=== PATIENT | female | born 1945 | race Hispanic/Latino ===

== ENCOUNTER 2017-02-27 13:54 | Emergency (ER) | payer MEDICARE ==
[2017-02-27 14:35] VITALS: BP 83/41
[2017-02-27 15:49] LABS: Hematocrit 34.7 % (30.3-42.9); Hemoglobin 11.5 gm/dl (10.1-14.3); Mean Corpuscular HGB Conc 33 % (30-34); Mean Corpuscular Hemoglobin 33 pg (28-32); Mean Corpuscular Volume 99 fl (79-97); Platelet Count 195 K/mm3 (140-440); Red Blood Count 3.49 M/mm3 (3.65-5.03); Red Cell Distribution Width 14.1 % (13.2-15.2); White Blood Count 6.3 K/mm3 (4.5-11.0)
[2017-02-27 16:10] LABS: Calcium 8.4 mg/dL (8.4-10.2); Chloride 100.1 mmol/L (98-107); Potassium 4.2 mmol/L (3.6-5.0)
--- NOTE | 2017-02-27 16:39 | XRay Report ---
CHEST ONE VIEW INDICATION: Hypotension. COMPARISON: None similar at this institution. FINDINGS: Portable, single, frontal chest radiograph demonstrates mild patient tilt to the right with normal cardiomediastinal silhouette. Clear lungs. Biapical scarring/pleural thickening. Intact bones. Extrinsic EKG leads. CONCLUSION: No acute disease in the chest. Thank you for the opportunity to participate in this patient's care.
[2017-02-27 16:58] LABS: Albumin 3.6 g/dL (3.9-5); Albumin/Globulin Ratio 1.6 %; Alkaline Phosphatase 83 units/L (35-129); Bilirubin,Total 0.2 mg/dL (0.1-1.2); Total Protein 5.9 g/dL (6.3-8.2)
[2017-02-27 17:01] LABS: Alanine Aminotransferase < 5 units/L (7-56); Bilirubin,Direct < 0.2 mg/dL (0-0.2)
[2017-02-27 17:13] LABS: Bilirubin,Urine NEG (Negative); Blood,Urine NEG (Negative); Ketones,Urine NEG (Negative); Leukocyte Esterase,Urine TR (Negative); Mucus,Urine FEW /HPF; Nitrite,Urine NEG (Negative); Protein,Urine <15 mg/dL mg/dL (Negative); Urobilinogen,Urine < 2.0 mg/dL (<2.0)
--- NOTE | 2017-02-27 18:04 | Emergency Department Report ---
ED General Adult HPI - General Chief complaint: Dizziness Stated complaint: LOW BP Time Seen by Provider: 02/27/17 16:00 Source: patient, EMS Mode of arrival: Stretcher Limitations: No Limitations - History of Present Illness Initial comments: The patient was sent to this facility for evaluation of hypotension. She is a resident in a detox program currently on perphenazine, Remeron, trazodone, haloperidol, Paxil, Depakote, Sinemet, gabapentin, Synthroid and Suboxone. She has a history of "stage III renal failure". She does not have any specific complaints on arrival other than generalized weakness. She denies headache chest pain abdominal pain or any swelling of her swelling of her lower extremities. She denies shortness of breath. Her lower blood pressure was noted today. She and I presume her tell me that she was on multiple sedatives and pain medications since her back surgery several years ago. -: Gradual Consistency: constant, now resolved (improved after IV fluid) Improves with: none Worsens with: none Associated Symptoms: denies other symptoms, weakness Treatments Prior to Arrival: none - Related Data Home Medications Medication Instructions Recorded Confirmed Last Taken Buprenorphine (Nf) [Subutex (Nf)] 1 tab PO DAILY 02/27/17 02/27/17 Unknown Carbidopa/Levodopa 25-100 [Sinemet] 1 each PO TID 02/27/17 02/27/17 Unknown Divalproex [DepaKOTE DR] 500 mg PO QHS 02/27/17 02/27/17 Unknown Gabapentin [Neurontin] 100 mg PO QHS 02/27/17 02/27/17 Unknown Haloperidol [Haldol] 1 mg PO TID PRN 02/27/17 02/27/17 Unknown Levothyroxine [Synthroid] 50 mcg PO QAM 02/27/17 02/27/17 Unknown Mirtazapine [Remeron] 30 mg PO QHS 02/27/17 02/27/17 Unknown Ondansetron [Zofran Odt] 1 tab PO DAILY PRN 02/27/17 02/27/17 Unknown Pantoprazole [Protonix TAB] 20 mg QDAY 02/27/17 02/27/17 Unknown Paxil 30 mg PO DAILY 02/27/17 02/27/17 Unknown Perphenazine 4 mg PO BID 02/27/17 02/27/17 Unknown Tizanidine HCl [Zanaflex] 4 mg PO TID PRN 02/27/17 02/27/17 Unknown traZODone [Desyrel] 100 mg PO QHS 02/27/17 02/27/17 Unknown Allergies Allergy/AdvReac Type Severity Reaction Status Date / Time hydromorphone HCl Allergy Unknown Verified 02/27/17 14:22 [From Dilaudid] quetiapine fumarate Allergy Unknown Verified 02/27/17 14:22 [From Seroquel] ED Review of Systems ROS: Stated complaint: LOW BP Other details as noted in HPI Constitutional: weakness. denies: chills, fever Eyes: denies: eye pain, eye discharge, vision change ENT: denies: ear pain, throat pain Respiratory: denies: cough, shortness of breath, wheezing Cardiovascular: denies: chest pain, palpitations Endocrine: no symptoms reported Gastrointestinal: denies: abdominal pain, nausea, diarrhea Genitourinary: denies: urgency, dysuria, discharge Musculoskeletal: denies: back pain, joint swelling, arthralgia Skin: denies: rash, lesions Neurological: denies: headache, weakness, paresthesias Psychiatric: as per HPI (bipolar disorder not currently symptomatic). denies: anxiety, depression Hematological/Lymphatic: denies: easy bleeding, easy bruising ED Past Medical Hx - Past Medical History Previous Medical History?: Yes Hx Hypertension: Yes Hx Psychiatric Treatment: Yes (Bipolar) Additional medical history: IBS, Parkinson's - Surgical History Past Surgical History?: Yes Hx Appendectomy: Yes Additional Surgical History: T&A, hysterectomy, back - Social History Smoking Status: Never Smoker Substance Use Type: None - Medications Home Medications: Home Medications Medication Instructions Recorded Confirmed Last Taken Type Buprenorphine (Nf) [Subutex (Nf)] 1 tab PO DAILY 02/27/17 02/27/17 Unknown History Carbidopa/Levodopa 25-100 [Sinemet] 1 each PO TID 02/27/17 02/27/17 Unknown History Divalproex [DepBarby GAYTAN] 500 mg PO QHS 02/27/17 02/27/17 Unknown History Gabapentin [Neurontin] 100 mg PO QHS 02/27/17 02/27/17 Unknown History Haloperidol [Haldol] 1 mg PO TID PRN 02/27/17 02/27/17 Unknown History Levothyroxine [Synthroid] 50 mcg PO QAM 02/27/17 02/27/17 Unknown History Mirtazapine [Remeron] 30 mg PO QHS 02/27/17 02/27/17 Unknown History Ondansetron [Zofran Odt] 1 tab PO DAILY PRN 02/27/17 02/27/17 Unknown History Pantoprazole [Protonix TAB] 20 mg QDAY 02/27/17 02/27/17 Unknown History Paxil 30 mg PO DAILY 02/27/17 02/27/17 Unknown History Perphenazine 4 mg PO BID 02/27/17 02/27/17 Unknown History Tizanidine HCl [Zanaflex] 4 mg PO TID PRN 02/27/17 02/27/17 Unknown History traZODone [Desyrel] 100 mg PO QHS 02/27/17 02/27/17 Unknown History ED Physical Exam - General Limitations: No Limitations General appearance: alert, lethargic (mildly lethargic) - Head Head exam: Present: atraumatic, normocephalic - Eye Eye exam: Present: normal appearance, PERRL, EOMI. Absent: scleral icterus - ENT ENT exam: Present: normal exam, mucous membranes moist - Neck Neck exam: Present: normal inspection - Respiratory Respiratory exam: Present: normal lung sounds bilaterally. Absent: respiratory distress - Cardiovascular Cardiovascular Exam: Present: regular rate, normal rhythm. Absent: systolic murmur, diastolic murmur, rubs, gallop - GI/Abdominal GI/Abdominal exam: Present: soft, normal bowel sounds. Absent: distended, tenderness, guarding, rebound, rigid, organomegaly, mass, bruit, pulsatile mass , hernia - Extremities Exam Extremities exam: Present: normal inspection - Back Exam Back exam: Present: normal inspection - Neurological Exam Neurological exam: Present: alert, oriented X3, CN II-XII intact. Absent: motor sensory deficit - Psychiatric Psychiatric exam: Present: normal affect, normal mood - Skin Skin exam: Present: warm, dry, intact, normal color. Absent: rash ED Course Vital Signs 02/27/17 02/27/17 02/27/17 14:01 14:11 14:12 Temperature 98.5 F Pulse Rate 61 Respiratory 16 Rate Blood Pressure 97/43 97/43 O2 Sat by Pulse 94 100 96 Oximetry 04/20/17 04/20/17 14:21 14:32 Temperature Pulse Rate Respiratory 18 Rate Blood Pressure 83/41 O2 Sat by Pulse 88 100 Oximetry - Reevaluation(s) Reevaluation #1: Patient was never tachycardic. She returned to the normotensive blood pressure range liter of IV fluid. She was symptomatically improved. She is certainly on a polypharmacy cocktail. I will recommend to Leando that they cut back on her medications somewhat globally. I would think that there could be multiple offenders. I do not think that she should continue the Zanaflex at all. I will leave the psychiatric cocktail up to the psychiatrist. However there appears to be a lot of redundancy if she is on Haldol perphenazine trazodone and Remeron. Allergies recommend that her antipsychotic medications be consolidated or reduced. 02/27/17 18:14 ED Medical Decision Making - Lab Data Result diagrams: 02/27/17 15:33 02/27/17 15:33 Laboratory Results - last 24 hr 02/27/17 02/27/17 02/27/17 14:12 15:33 15:33 WBC 6.3 RBC 3.49 L Hgb 11.5 Hct 34.7 MCV 99 H MCH 33 H MCHC 33 RDW 14.1 Plt Count 195 APTT Sodium 140 Potassium 4.2 Chloride 100.1 Carbon Dioxide 27 Anion Gap 17 BUN 23 H Creatinine 2.3 H Estimated GFR 21 BUN/Creatinine Ratio 10.00 Glucose 104 H POC Glucose 143 H Lactic Acid Calcium 8.4 Magnesium Total Bilirubin Direct Bilirubin Indirect Bilirubin AST ALT Alkaline Phosphatase NT-Pro-B Natriuret Pep Total Protein Albumin Albumin/Globulin Ratio TSH Urine Color Urine Turbidity Urine pH Ur Specific [place] Urine Protein Urine Glucose (UA) Urine Ketones Urine Blood Urine Nitrite Urine Bilirubin Urine Urobilinogen Ur Leukocyte Esterase Urine WBC (Auto) Urine RBC (Auto) U Epithel Cells (Auto) Hyaline Casts Urine Mucus Valproic Acid Blood Type Antibody Screen 02/27/17 02/27/17 02/27/17 15:36 15:36 16:20 WBC RBC Hgb Hct MCV MCH MCHC RDW Plt Count APTT 21.2 L Sodium Potassium Chloride Carbon Dioxide Anion Gap BUN Creatinine Estimated GFR BUN/Creatinine Ratio Glucose POC Glucose Lactic Acid Calcium Magnesium Total Bilirubin Direct Bilirubin Indirect Bilirubin AST ALT Alkaline Phosphatase NT-Pro-B Natriuret Pep Total Protein Albumin Albumin/Globulin Ratio TSH 0.963 Urine Color Urine Turbidity Urine pH Ur Specific [place] Urine Protein Urine Glucose (UA) Urine Ketones Urine Blood Urine Nitrite Urine Bilirubin Urine Urobilinogen Ur Leukocyte Esterase Urine WBC (Auto) Urine RBC (Auto) U Epithel Cells (Auto) Hyaline Casts Urine Mucus Valproic Acid 32.5 L Blood Type Antibody Screen 02/27/17 02/27/17 02/27/17 16:20 16:20 16:20 WBC RBC Hgb Hct MCV MCH MCHC RDW Plt Count APTT Sodium Potassium Chloride Carbon Dioxide Anion Gap BUN Creatinine Estimated GFR BUN/Creatinine Ratio Glucose POC Glucose Lactic Acid Calcium Magnesium 2.0 Total Bilirubin 0.2 Direct Bilirubin < 0.2 Indirect Bilirubin 0.0 AST 19 ALT < 5 L Alkaline Phosphatase 83 NT-Pro-B Natriuret Pep 1186 H Total Protein 5.9 L Albumin 3.6 L Albumin/Globulin Ratio 1.6 TSH Urine Color Urine Turbidity Urine pH Ur Specific [place] Urine Protein Urine Glucose (UA) Urine Ketones Urine Blood Urine Nitrite Urine Bilirubin Urine Urobilinogen Ur Leukocyte Esterase Urine WBC (Auto) Urine RBC (Auto) U Epithel Cells (Auto) Hyaline Casts Urine Mucus Valproic Acid Blood Type O NEGATIVE Antibody Screen Negative 02/27/17 02/27/17 16:25 16:46 WBC RBC Hgb Hct MCV MCH MCHC RDW Plt Count APTT Sodium Potassium Chloride Carbon Dioxide Anion Gap BUN Creatinine Estimated GFR BUN/Creatinine Ratio Glucose POC Glucose Lactic Acid 0.7 Calcium Magnesium Total Bilirubin Direct Bilirubin Indirect Bilirubin AST ALT Alkaline Phosphatase NT-Pro-B Natriuret Pep Total Protein Albumin Albumin/Globulin Ratio TSH Urine Color Yellow Urine Turbidity Clear Urine pH 5.0 Ur Specific [place] 1.015 Urine Protein <15 mg/dl Urine Glucose (UA) Neg Urine Ketones Neg Urine Blood Neg Urine Nitrite Neg Urine Bilirubin Neg Urine Urobilinogen < 2.0 Ur Leukocyte Esterase Tr Urine WBC (Auto) 4.0 Urine RBC (Auto) 3.0 U Epithel Cells (Auto) < 1.0 Hyaline Casts 1 Urine Mucus Few Valproic Acid Blood Type Antibody Screen - EKG Data -: EKG Interpreted by Me EKG shows normal: sinus rhythm, axis, intervals, QRS complexes, ST-T waves Rate: normal - EKG Data Interpretation: normal EKG - Radiology Data interpreted by me: chest x-ray no acute process Critical care attestation.: If time is entered above; I have spent that time in minutes in the direct care of this critically ill patient, excluding procedure time. ED Disposition Clinical Impression: Hypotensive episode Disposition: DISCHARGED TO HOME OR SELFCARE Is pt being admited?: No Does the pt Need Aspirin: No Condition: Stable Instructions: Hypotension (ED) Additional Instructions: As far as I can tell the patient is on four antipsychotics. I think these medications should be reduced and or consolidated. Nonessential medicine should be discontinued such as Zanaflex. Blood pressure should be frequently monitored. Further arm acidic management obviously per the psychiatrist. However, there appeared to be multiple medications that can have a negative effect on the blood pressure. They should be reduced and or consolidated. Would recommend an internal medicine consult to follow this patient along during the hospitalization. Referrals: PRIMARY CARE, [Primary Care Provider] - 3-5 Days Time of Disposition: 18:18
== END 2017-02-27 19:22 | disposition home or self-care (01) ==
LOC: ED 13:54
DX: I95.9 Hypotension, unspecified (principal); I10 Essential (primary) hypertension; F31.9 Bipolar disorder, unspecified; K58.9 Irritable bowel syndrome, unspecified; G20 Parkinson's disease; Z88.8 Allergy status to other drugs, medicaments and biological substances
CPT/HCPCS: 36415; 71010; 80048; 80074; 80164; 81001; 82140; 82962; 83735; 83880; 84443; 85027; 85730; 86850; 86900; 86901; 87040; 93005; 93010